=== PATIENT | male | born 1995 | race Caucasian/White ===

== ENCOUNTER 2023-05-21 08:04 | Emergency (ER) | payer OTHER, SELFPAY ==
--- NOTE | ~2023-05-21 | XR_ITS ---
EXAMINATION: XR chest 2V DATE: 05/21/2023 08:32 INDICATION: Productive cough. TECHNIQUE: Frontal and lateral views of the chest were obtained. COMPARISON: None. FINDINGS: There is no pneumonia, pleural effusion, or pneumothorax. The heart size is normal. IMPRESSION: 1. No acute cardiopulmonary disease. Reviewed, dictated and finalized at location A.
--- NOTE | 2023-05-21 08:12 | ED_ITS ---
HPI - General Adult General Chief complaint: Upper Respiratory Infection Stated complaint: poss sinus infection/cough Time Seen by Provider: 05/21/23 08:13 Source: patient, RN notes reviewed and old records reviewed Mode of arrival: ambulatory Limitations: no limitations History of Present Illness HPI narrative: 27-year-old male to Express Care with complaint of nasal congestion, chest congestion, productive cough with green sputum for 8 days. Patient endorses symptoms are worse at night and affecting his sleep. Patient is treated at home with Mucinex and humidified air with some relief. Patient denies allergies, fever, prescription medications. Patient endorses history of pneumonia. Patient able to tolerate fluids by mouth. Respirations even and nonlabored. No signs of distress. Related Data Allergies Allergy/AdvReac Type Severity Reaction Status Date / Time No Known Allergies Allergy Verified 05/21/23 08:16 Review of Systems Review of Systems: All systems reviewed & are unremarkable except as noted in HPI and below Constitutional: Constitutional: Reports as per HPI, Reports difficulty sleeping and Denies fever(s) Eyes: Eyes: Reports no additional eye complaints ENT: Reports as per HPI, Reports nasal congestion and Reports sore throat Cardiovascular: Cardiovascular: Reports no additional cardiovascular complaints, Denies chest pain and Denies dyspnea Respiratory: Respiratory: Reports no additional respiratory complaints ( green sputum), Reports cough and Denies dyspnea Musculoskeletal: Musculoskeletal: Reports no additional musculoskeletal complaints Neurologic: Reports system reviewed and no additional complaints, except as documented Psychiatric: Psychiatric: Reports no additional psychiatric complaints PMFSH Comments At the time of my signature, I reviewed and agree with the nursing past medical, surgical, social, and family history. There is no relevant family history pertinent to the patient complaint. Exam Const: General: cooperative, healthy appearing, comfortable, no acute distress, alert and well nourished Nutritional Appearance: well nourished Orientation/consciousness: patient oriented x3 Limitations: no limitations HENMT: Head: normal to inspection Ears: external ears normal, Abnormal EAC present excessive cerumen on the left and TM abnormal bulging on the right and dull on the right Face/Nose/Sinus: Normal external nose present, Normal nares present, normal facial exam, No erythema and No edema Face and sinus: normal facial exam, no erythema and no edema Mouth: Yes Normal oral and palatal mucosa present Throat: posterior oropharynx abnormal erythema Eyes: General: appearance normal, both eyes and all related structures Neck: Neck: normal visual inspection, full ROM and no meningeal signs Lymphatic: no lymphadenopathy noted and no lymphedema noted Chest: Chest palpation & inspection: normal inspection of the chest Resp: Effort & Inspection: normal respiratory effort and able to speak in complete sentences Auscultation: clear to auscultation bilaterally and diminished lung sounds bilateral in the lower lung alcazar Cardio: Jugular venous distension: no JVD Rate: regular rate Rhythm: regular rhythm Back/Spine/Pelvis: Cervical Spine: cervical ROM normal Skin: General skin exam: normal color, no rashes or lesions noted and turgor normal Neuro: General: patient oriented x3, gait normal, moves all extremities and no meningeal signs Speech: normal speech Gait exam (Neuro): Normal gait present Extrem: General: normal to inspection, full ROM and capillary refill normal Psych: Appearance: grossly normal and well kempt Course Course Emergency Course: Some parts of this dictation were generated by voice recognition software and may contain typographical and/or grammatical inaccuracies. Level of Care: Express Care Visit Vital Signs Vital signs: Vital Signs Temperature 37.2 C 05/21/23 08:13 Pulse Rate 91 05/21/23 08:13 Respiratory Rate 16 05/21/23 08:13 Blood Pressure 150/81 H 05/21/23 08:13 Pulse Oximetry 100 05/21/23 08:13 Oxygen Delivery Room Air 05/21/23 08:13 Temperature 37.2 C 05/21/23 08:13 Pulse Rate 91 05/21/23 08:13 Respiratory Rate 16 05/21/23 08:13 Blood Pressure 150/81 H 05/21/23 08:13 Pulse Oximetry 100 05/21/23 08:13 Oxygen Delivery Room Air 05/21/23 08:13 reviewed Medical Decision Making MDM Narrative Medical decision making narrative: 27-year-old male to Express Care with complaint of nasal congestion, chest congestion, productive cough with green sputum for 8 days. Patient endorses symptoms are worse at night and affecting his sleep. Patient is treated at home with Mucinex and humidified air with some relief. Patient denies allergies, fever, prescription medications. Patient endorses history of pneumonia. Patient able to tolerate fluids by mouth. Respirations even and nonlabored. No signs of distress. On exam right TM bulging and dull, consistent with otitis media. Left EAC occluded with cerumen. Patient tolerated removal well. Left EAC erythematous and edematous. Consistent with otitis externa. posterior lung sounds diminished at bases bilaterally. X-ray clear in clinic. Patient is sitting comfortably in exam room nontoxic in appearance. Patient appropriate for outpatient treatment and follow-up. Discharge instructions reviewed with patient, as well as provided in writing per nursing staff. The instructions also include specific and strict return/GO TO THE ER as well as f/u information. All questions have been answered, and the patient deny any further questions with discharge and discharge plan. Some parts of this dictation were generated by voice recognition software and may contain typographical and/or grammatical inaccuracies. Differential Diagnosis Differential Diagnosis: Otitis media, otitis externa, upper respiratory infection, sinusitis, pneumonia Vital Signs Vital Signs: Vital Signs Temperature 37.2 C 05/21/23 08:13 Pulse Rate 91 05/21/23 08:13 Respiratory Rate 16 05/21/23 08:13 Blood Pressure 150/81 H 05/21/23 08:13 Pulse Oximetry 100 05/21/23 08:13 Oxygen Delivery Room Air 05/21/23 08:13 Temperature 37.2 C 05/21/23 08:13 Pulse Rate 91 05/21/23 08:13 Respiratory Rate 16 05/21/23 08:13 Blood Pressure 150/81 H 05/21/23 08:13 Pulse Oximetry 100 05/21/23 08:13 Oxygen Delivery Room Air 05/21/23 08:13 reviewed Imaging Data Radiologist's impression: Ordering Physician: Dora Jimenez APRN Date of Service: 05/21/23 Procedure(s): XR chest 2V Accession Number(s): [id number] cc: Dora Jimenez APRN~ EXAMINATION: XR chest 2V DATE: 05/21/2023 08:32 INDICATION: Productive cough. TECHNIQUE: Frontal and lateral views of the chest were obtained. COMPARISON: None. FINDINGS: There is no pneumonia, pleural effusion, or pneumothorax. The heart size is normal. IMPRESSION: 1. No acute cardiopulmonary disease. Discharge Plan Discharge Clinical Impression: Otitis media, Otitis externa Patient Disposition: Home, Self-Care Condition: Stable Instructions: Antibiotic Form, Swimmer's Ear (ED), Ear Infection (ED) Additional Instructions: -your blood pressure was 150/81 in clinic today. It is important you contact your primary care provider to discuss your blood pressure -Alternate Tylenol and Motrin per package directions for fever or pain. -Antihistamine medication such as Benadryl at night and Zyrtec/Claritin/Kallie during the day can help improve symptoms. -Use Flonase twice a day for 5 days then daily to help reduce the inflammation and dry up your sinuses. -You can also use Sudafed or Mucinex. Be sure to drink plenty of water with these medications at least 8 ounces with every dose and it is important to drink 8 to 10 glasses of water per day. Water is a natural decongestant -Eat and drink things that are easy to swallow, like tea or soup, or popsicles. -Oral rinses such as: Salt water gargles and/or may use topical anesthetic (eg. Chloraseptic spray) or lozenges to relieve dryness or throat pain). -Frequent hand washing or hand metal bench patternmaker is one of the best ways to prevent spread of infection. -Using a vaporizer or humidifier at night will also help thin secretions and help with coughing up phlegm. -Follow up with primary care provider in 2-3 days if condition is not improving; or seek ER visit if you have trouble breathing, cannot drink enough fluids, have muffled voice, difficulty opening your mouth, or severe swelling. Patient Language: Kinyarwanda Prescriptions: New ofloxacin 0.3 % drops 10 drp LEFT EAR DAILY 7 Days Qty: 10 0RF amoxicillin 875 mg tablet 875 mg PO Q12H Qty: 20 0RF Follow-up/Referrals: PHYSICIAN NOT ON STAFF,NONSTAFF [Primary Care Provider] - Time of Disposition: 10:46
[2023-05-21 08:13] VITALS: BP 150/81; PULSE 91; RESP 16; TEMP 37.2; O2SAT 100
== END 2023-05-21 09:20 | disposition home or self-care (01) ==
PROVIDERS: Emergency Provider Nurse Practitioner Family
DX: H66.91 Otitis media, unspecified, right ear (principal); H60.92 Unspecified otitis externa, left ear; H61.23 Impacted cerumen, bilateral
CPT/HCPCS: 69210; 71046; 99213; A9270; G0463

== ENCOUNTER 2024-01-29 08:32 | Emergency (ER) | payer OTHER, SELFPAY ==
[2024-01-29 08:40] VITALS: BP 119/81; PULSE 80; RESP 20; TEMP 37.1; O2SAT 100
--- NOTE | 2024-01-29 09:09 | ED.URI ---
HPI - URI/Sore Throat General Chief Complaint: Upper Respiratory Infection Stated Complaint: cough/chest tight/chills/achey Time Seen by Provider: 01/29/24 09:09 Source: patient Mode of arrival: ambulatory Limitations: no limitations History of Present Illness HPI Narrative: 28-year-old male presented for complaint cough for 2 weeks. Endorses body aches, chills and sweats over the past few nights. Denies shortness of breath, wheezing, nausea, vomiting or lethargy. Related Data Allergies Allergy/AdvReac Type Severity Reaction Status Date / Time No Known Allergies Allergy Verified 01/29/24 09:04 Review of Systems Review of Systems: CONSTITUTIONAL: reports fever, chills sweats. EYES: Denies visual changes, redness, or discharge. ENT: Denies rhinorrhea, congestion, sore throat, or otalgia. CARDIOVASCULAR: Denies chest pain, palpitations, or edema. RESPIRATORY: Reports cough, denies sob, wheezing. GASTROINTESTINAL: Denies abdominal pain, nausea, vomiting, or diarrhea. SKIN: Denies rash MUSCULOSKELETAL: Denies back pain, joint pain, or myalgia. NEUROLOGIC: Denies headache All systems reviewed & are unremarkable except as noted in HPI and below PMFSH Comments At time of signature, I have reviewed and agree with nursing past medical, surgical, social and family history unless otherwise noted. Please see nursing chart for further information. There is no relevant family history pertinent to the presenting complaint Exam Narrative: GENERAL: mildly ill-appearing, in no acute distress. EYES: EOMI. No redness or drainage. Conjunctivae normal. ENT: Mucous membranes pink and moist. No rhinorrhea. TMs normal bilaterally. Throat normal. Uvula midline. NECK: Normal AROM. Supple. CHEST: No respiratory distress. lungs clear to all alcazar. HEART: Regular rate and rhythm. No murmur appreciated. ABDOMEN: Soft, nontender, nondistended, normal active bowel sounds. SKIN: Warm, dry, no rash. Capillary refill normal. Normal skin turgor. NEURO: Alert and oriented x3. Gait steady. PSYCH: Normal affect. Course Course Emergency Course: Patient is aware of diagnosis, understands and agrees to treatment plan. Anticipatory guidance given. Patient agrees to follow-up as directed and is aware of reasons to seek care at the emergency department. Portions of this record may have been created with voice recognition software Level of Care: [facility] Visit Vital Signs Vital signs: Vital Signs Temperature 98.7 F 01/29/24 08:40 Pulse Rate 80 01/29/24 08:40 Respiratory Rate 20 01/29/24 08:40 Blood Pressure 119/81 01/29/24 08:40 Pulse Oximetry 100 01/29/24 08:40 Oxygen Delivery Room Air 01/29/24 08:40 Temperature 98.7 F 01/29/24 08:40 Pulse Rate 80 01/29/24 08:40 Respiratory Rate 20 01/29/24 08:40 Blood Pressure 119/81 01/29/24 08:40 Pulse Oximetry 100 01/29/24 08:40 Oxygen Delivery Room Air 01/29/24 08:40 MDM - URI/Sore Throat MDM Narrative Medical decision making narrative: Discussed physical exam findings. Advised supportive measures and signs/symptoms to go to the ER. Pt is appropriate for outpt treatment and f/u. Differential Diagnosis Differential diagnosis: Likely upper respiratory infection, sinusitis, viral infection, bronchitis, influenza, pharyngitis and other ( pneumonia) Discharge Plan Discharge Clinical Impression: Acute lower respiratory infection Patient Disposition: Home, Self-Care Condition: Stable Instructions: Antibiotic Form, Pneumonia (ED) Additional Instructions: Pneumonia is a lung infection that can cause a fever, cough, and trouble breathing. How it spreads: When someone with bacterial pneumonia coughs, sneezes, or talks, they release respiratory droplets into the air that can be inhaled by others.?You can also get pneumonia by touching a contaminated surface or object and then touching your mouth or nose. You're generally contagious for around 48 hours after starting antibiotics and your fever goes away.? To prevent the spread of pneumonia, you can:? ? Get vaccinated? ? Wash your hands often with soap and water for 20 seconds? ? Cover your mouth with a tissue when you cough or sneeze? ? Avoid people who are already sick with pneumonia? ? Stay home when you have pneumonia Take antibiotics as directed until complete. eat small frequent meals. Get lots of rest and drink fluids. Alternate Tylenol and ibuprofen for pain/fever [id number] cough medication can cause drowsiness, take according to package directions If you have nasal congestion, you can take Zyrtec, Claritin along with Flonase spray Call your Primary Care Doctor and make a follow-up appointment in 3 days. Go to the ER for worsening symptoms or concerns Patient Language: Maldivian Prescriptions: New azithromycin [Zithromax Z-Nadeem] 250 mg tablet See Rx Instructions .ROUTE .COMPLEX Qty: 6 0RF Rx Instructions: For 250 mg dose pack: take 500 mg today (day 1), then 250 mg for 4 days (days 2-5) methylprednisolone [Medrol (Nadeem)] 4 mg tablets,dose pack See Rx Instructions .ROUTE .COMPLEX Qty: 21 0RF Rx Instructions: orally per package directions Follow-up/Referrals: PHYSICIAN,DIRECTOR OF CUSTOMER ACQUISITION [Primary Care Provider] - Time of Disposition: 09:15
== END 2024-01-29 09:17 | disposition home or self-care (01) ==
PROVIDERS: Emergency Provider Nurse Practitioner Family
DX: J22 Unspecified acute lower respiratory infection (principal)
CPT/HCPCS: 99213; G0463